=== PATIENT | male | born 1955 | race Caucasian/White ===

== ENCOUNTER 2018-12-18 11:23 | Outpatient (CLI) | payer MEDICARE, BC ==
--- NOTE | 2018-12-18 11:36 | RAD ---
EXAM: Chest 2 views: HISTORY: Dyspnea COMPARISON: 11/07/2014 FINDINGS: There is an enlarged but stable cardiomediastinal silhouette. The pacemaker is unchanged in position . There is no evidence of consolidation, mass, or pleural effusion. The bones are unremarkable. IMPRESSION: No evidence of acute cardiopulmonary disease
== END 2018-12-18 11:24 | disposition home or self-care (01) ==
LOC: RAD 11:23
PROVIDERS: ATTEND Internal Medicine Critical Care Medicine
DX: R06.00 Dyspnea, unspecified (principal)
CPT/HCPCS: 36415; 71046; 80053; 80061

== ENCOUNTER 2024-08-04 05:52 | Day surgery (SDC) | payer MEDICARE, BC ==
[2024-08-01 11:22] VITALS: BMI 30.8
[2024-08-04] MEDS ORDERED: PROPOFOL 40 ML ONE (07:12)
[2024-08-04] MEDS ORDERED: Lidocaine 1% PF 5 ML VIAL ONE (08:23)
[2024-08-04] MEDS ORDERED: PHENYLEPHRINE-NS 100 MCG/ML 10 ML SYRINGE ONE (08:23)
== END 2024-08-04 10:37 | disposition home or self-care (01) ==
LOC: SDC 05:52
PROVIDERS: ATTEND Internal Medicine Cardiovascular Disease
PROC: B246ZZ4 Ultrasonography of Right and Left Heart, Transesophageal (ICD-10-PCS; principal; 2024-08-04)
DX: I48.20 Chronic atrial fibrillation, unspecified (principal)
CPT/HCPCS: 93312; J2704